=== PATIENT | female | born 1980 | race Caucasian/White ===

== ENCOUNTER 2016-12-02 21:28 | Emergency (ER) | payer MEDICARE | END 2016-12-03 00:55 | disposition home or self-care (01) | LOC: ER 21:28 | DX: R53.1 Weakness (principal); F32.9 Major depressive disorder, single episode, unspecified; F41.9 Anxiety disorder, unspecified; K21.9 Gastro-esophageal reflux disease without esophagitis; F17.210 Nicotine dependence, cigarettes, uncomplicated | CPT/HCPCS: 36415; 87502 ==